=== PATIENT | male | born 1985 ===

== ENCOUNTER 2017-08-06 10:59 | Emergency (ER) | payer OTHER ==
[~2017-08-06] VITALS: Ht 160 cm; Wt 50.0 kg
[2017-08-06] MEDS ORDERED: KETOROLAC 15 MG INJ IV STA (11:01)
[2017-08-06] MEDS ORDERED: DIPHENHYDRAMINE 50 MG INJ IV STA (11:01)
[2017-08-06] MEDS ORDERED: SOD CHLORIDE 0.9% 1,000 ML IV STA (11:01)
[2017-08-06] MEDS ORDERED: METOCLOPRAMIDE 10 MG INJ IV STA (11:01)
[2017-08-06 11:09] VITALS: Ht 160 cm; Wt 50.0 kg
[2017-08-06] MEDS ORDERED: FIORICET PO (12:41)
--- NOTE | 2017-08-06 12:43 | ERD ---
ER Documentation Chief Complaint Date/Time DATE: 08/06/17 TIME: 12:42 Chief Complaint CAME IN VIA EMS FROM HOME DUE TO MIGRAINE HPI 31-year-old male with a history of chronic headaches who presents via EMS for headache. He describes gradual onset left-sided unilateral headache that is approximately 7 out of 10 with associated photophobia. This is very similar to headaches in the past. The patient has had [employer] imaging in the past. He has an appointment with his primary care physician at [facility] this week but he had worsening pain today and presents the emergency room. No fevers, vomiting or neck stiffness. ROS All systems reviewed and are negative except as per history of present illness. Medications Home Meds Active Scripts Acetamin/Butalbital/Caffeine* (Fioricet*) [id number] Tab, 1 TAB PO Q6H Y for PAIN, #30 TAB Prov:DAGOBERTO TOTH MD 08/06/17 PMhx/Soc Medical and Surgical Hx: pt denies Medical Hx, pt denies Surgical Hx Hx Alcohol Use: Yes Hx Substance Use: No Hx Tobacco Use: No Smoking Status: Never smoker FmHx Family History: No diabetes Physical Exam Vitals Vital Signs Date Time Temp Pulse Resp B/P Pulse Ox O2 Delivery O2 Flow Rate FiO2 08/06/17 11:09 98.5 84 18 124/78 98 Physical Exam General: Well developed, well nourished, no acute distress Head: Normocephalic, atraumatic. Eyes: Pupils equally reactive, EOM intact ENT: Moist mucous membranes Neck: Supple, no lymphadenopathy Respiratory: Lungs clear bilaterally, no distress Cardiovascular: RRR, no murmurs, rubs, or gallops Abdominal: Soft, non-tender, non-distended, no peritoneal signs : Deferred MSK: No edema, no unilateral swelling, 5/5 strength Neurologic: Alert and oriented, moving all extremities, normal speech, no focal weakness, no cerebellar signs no meningismus Skin: No rash Psych: Normal mood Results 24 hrs Current Medications Medications (Trade) Dose Ordered Sig/Patty Route PRN Reason Start Time Stop Time Status Last Admin Dose Admin Sodium Chloride (NS) 1,000 ml @ 1,000 mls/hr Q1H STAT IV 08/06/17 11:01 08/06/17 12:00 DC 08/06/17 11:21 Metoclopramide HCl (Reglan) 10 mg ONCE STAT IV 08/06/17 11:01 08/06/17 11:03 DC 08/06/17 11:21 Diphenhydramine HCl (Benadryl) 25 mg ONCE STAT IV 08/06/17 11:01 08/06/17 11:03 DC 08/06/17 11:21 Ketorolac Tromethamine (Toradol) 15 mg ONCE STAT IV 08/06/17 11:01 08/06/17 11:03 DC 08/06/17 11:21 Procedures/MDM MEDICAL DECISION MAKING: The patient's headache is unlikely related to serious etiology. The patient does not exhibit any clinical signs or symptoms, and has no risk factors to suggest headache etiology such as subarachnoid hemorrhage, acute vertebral or carotid dissection, intracranial mass, epidural, subdural hematoma, dural venous sinus thrombosis, giant cell arteritis, or pseudotumor cerebri. The patient has had prior [employer] imaging, no indication for CT imaging currently. This is very consistent with likely chronic migraine. The patient will benefit from symptom control alone. ER COURSE: The patient was given IV fluids, Reglan, Benadryl, Toradol with complete resolution of his symptoms. He was advised to continue follow-up with his primary care physician as planned. The patient is safe for discharge. I kept the patient and/or family informed of laboratory and diagnostic imaging results throughout the emergency room course. DISPOSITION PLAN: We discussed follow up with the patient's primary care doctor within 24 to 48 hours as needed. We also discussed return to the emergency room for worsening symptoms or worsening condition. Outpatient referral: [None required] Discharge Medications: Fioricet Departure Diagnosis: Primary Impression: Migraine headache Migraine type: unspecified Status migrainosus presence: without status migrainosus Intractability: not intractable Qualified Code: G43.909 - Migraine without status migrainosus, not intractable, unspecified migraine type Condition: Stable Patient Instructions: Headache, Migraine (Classical) Referrals: COMM[facility] YOU HAVE RECEIVED A MEDICAL SCREENING EXAM AND THE RESULTS INDICATE THAT YOU DO NOT HAVE A CONDITION THAT REQUIRES URGENT TREATMENT IN THE EMERGENCY DEPARTMENT. FURTHER EVALUATION AND TREATMENT OF YOUR CONDITION CAN WAIT UNTIL YOU ARE SEEN IN YOUR DOCTORS OFFICE WITHIN THE NEXT 1-2 DAYS. IT IS YOUR RESPONSIBILITY TO MAKE AN APPOINTMENT FOR FOLOW-UP CARE. IF YOU HAVE A PRIMARY DOCTOR --you should call your primary doctor and schedule an appointment IF YOU DO NOT HAVE A PRIMARY DOCTOR YOU CAN CALL OUR PHYSICIAN REFERRAL HOTLINE AT IF YOU CAN NOT AFFORD TO SEE A PHYSICIAN YOU CAN CHOSE FROM THE FOLLOWING [facility] [address] [facility] [address] [facility] [address] [facility] [address] [facility] [address] [facility] [facility] [address] [facility]. [facility] YOU HAVE RECEIVED A MEDICAL SCREENING EXAM AND THE RESULTS INDICATE THAT YOU DO NOT HAVE A CONDITION THAT REQUIRES URGENT TREATMENT IN THE EMERGENCY DEPARTMENT. FURTHER EVALUATION AND TREATMENT OF YOUR CONDITION CAN WAIT UNTIL YOU ARE SEEN IN YOUR DOCTORS OFFICE WITHIN THE NEXT 1-2 DAYS. IT IS YOUR RESPONSIBILITY TO MAKE AN APPOINTMENT FOR FOLOW-UP CARE. IF YOU HAVE A PRIMARY DOCTOR --you should call your primary doctor and schedule and appointment IF YOU DO NOT HAVE A PRIMARY DOCTOR YOU CAN CALL OUR PHYSICIAN REFERRAL HOTLINE AT . IF YOU CAN NOT AFFORD TO SEE A PHYSICIAN YOU CAN CHOSE FROM THE FOLLOWING [facility] INSTITUTIONS: [facility] [address] [place] [address] [facility] [address] [place] [address] [facility] + [facility] [address] [place] [address] Additional Instructions: Call your primary care doctor TOMORROW for an appointment during the next 1 WEEK.Tell the area secretary that you were referred from this facility.See the doctor sooner or return here if your condition worsens before your appointment time. DAGOBERTO TOTH MD Aug 06, 2017 12:43
== END 2017-08-06 12:53 | disposition home or self-care (01) ==
LOC: E/R 10:59
DX: G43.909 Migraine, unspecified, not intractable, without status migrainosus (principal)
CPT/HCPCS: 96374; 96375; 99284; J1200; J1885; J2765; J7030